=== PATIENT | male | born 1955 | race Caucasian/White ===

== ENCOUNTER 2018-05-16 15:03 | Emergency (ER) | payer MEDICARE, MEDICAID ==
[2018-05-16] MEDS ORDERED: Sodium Chloride 0.9% 10 ML Syringe FLUSH PRN (15:07)
[2018-05-16 15:49] LABS: BASE EXCESS ARTERIAL 2 mmol/L ((-2)-(+3)); BICARBONATE,ARTERIAL 26.1 mmol/L (22-26); O2 DELIVERY DEVICE NASAL CANNULA; O2 SATURATION ARTERIAL 95 % (95-100); PCO2 ARTERIAL 39 mmHg (35-45); PO2 ARTERIAL 77 mmHg (70-100)
[2018-05-16 15:51] LABS: ALLEN TEST PERFORMED
[2018-05-16] MEDS ORDERED: fentaNYL 100 MCG/2 ML SDV IVPUSH ONE (16:18)
[2018-05-16] MEDS ORDERED: fentaNYL 100 MCG/2 ML SDV ONE (16:19)
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
== END 2018-05-16 16:55 ==
LOC: DL.ED 15:03
DX: I31.3 Pericardial effusion (noninflammatory) (principal); J90 Pleural effusion, not elsewhere classified; I95.9 Hypotension, unspecified; R09.02 Hypoxemia; R79.89 Other specified abnormal findings of blood chemistry; Z87.891 Personal history of nicotine dependence
CPT/HCPCS: 36415; 36600; 71045; 82803; 83605; 84484; 86140; 87040; 93005; 96374; 99285; J3010